=== PATIENT | female | born 1940 | race Caucasian/White ===

== ENCOUNTER 2018-03-20 10:32 | Emergency (ER) | payer MEDICARE ==
[2018-03-20 11:51] VITALS: BP 128/63
--- NOTE | 2018-03-20 12:30 | UC ---
Complaint Female HPI - HPI Summary HPI Summary: Patient got from [place] 3 days ago reported decreased by mouth intake so she wouldn't be getting out bathroom to urinate so much. 2 days ago developed urinary pain urgency burning frequency no fevers chills nausea vomiting or night sweats. Today pain and burning urgency and frequency or worsen - History Of Current Complaint Chief Complaint: UCGU Stated Complaint: URINARY Time Seen by Provider: 03/20/18 12:24 Hx Obtained From: Patient ?: No Onset/Duration: Sudden Onset, Lasting Days - 2, Worse Since - today Timing: Constant Severity Initially: Mild Severity Currently: Moderate Character: Burning Aggravating Factor(s): Urination - Allergies/Home Medications Allergies/Adverse Reactions: Allergies Allergy/AdvReac Type Severity Reaction Status Date / Time codeine Allergy hyperactivi Verified 03/20/18 11:55 ty metoclopramide [From Reglan] Allergy facial Verified 03/20/18 11:55 drooping Sulfa (Sulfonamide Allergy Rash Verified 03/20/18 11:54 Antibiotics) seasonal Allergy Congestion Uncoded 03/20/18 11:54 Home Medications: Home Medications Amlodipine Besylate [Norvasc 5 mg tab] 5 mg PO DAILY 03/20/18 [History Confirmed 03/20/18] Ascorbic Acid TAB* [Vitamin C TAB*] 1,000 mg PO DAILY 03/20/18 [History Confirmed 03/20/18] Aspirin [Aspirin Childrens 81 MG] 81 mg PO DAILY 03/20/18 [History Confirmed 04/02] Calcium Carbonate/Vitamin D3 [Calcium 600 + Vit D Tablet] 1 each PO DAILY [History Confirmed 03/20/18] Candesartan Cilexetil [Atacand] 16 mg PO QPM 03/20/18 [History Confirmed ] Clopidogrel TAB* [Plavix TAB*] 75 mg PO DAILY 03/20/18 [History Confirmed ] Cyanocobalamin TAB* [Vitamin B12 TAB*] 10,000 mcg PO DAILY 03/20/18 [History Confirmed 03/20/18] Dorzolamide/Timolol OPTH (NF) [Cosopt (NF)] 1 drop BOTH EYES BID 03/20/18 [ History Confirmed 03/20/18] Escitalopram Oxalate [Lexapro 20 mg] 20 mg PO DAILY 03/20/18 [History Confirmed 03/20/18] Magnesium Oxide [Magnesium] 1,000 mg PO DAILY 03/20/18 [History Confirmed ] Pantoprazole Sodium [Protonix] 20 mg PO DAILY 03/20/18 [History Confirmed ] Pravastatin Sodium [Pravachol] 40 mg PO BEDTIME 03/20/18 [History Confirmed 04/02] SUMAtriptan TAB* [Imitrex TAB*] 25 mg PO SEE INSTRUCTIONS 03/20/18 [History Confirmed 03/20/18] hydrOXYzine HCL TAB* [Atarax 25 MG TAB*] 25 mg PO SEE INSTRUCTIONS PRN 03/20/18 [History Confirmed 03/20/18] hydroCHLOROthiazide [Microzide-] 12.5 mg PO DAILY 03/20/18 [History Confirmed ] traZODone TAB* [Desyrel TAB*] 50 mg PO BEDTIME 03/20/18 [History Confirmed 03/20] PMH/Surg Hx/FS Hx/Imm Hx Previously Healthy: No Endocrine History: Dyslipidemia Cardiovascular History: Hypertension GI/ History: Gastroesophageal Reflux Neurological History: Migraine Psychological History: Depression - Surgical History Surgical History: Yes Surgery Procedure, Year, and Place: b/l knees,hysterectomy,lumbar, head aneurysms, right ankle; knee, lumbar, lapband, left hand - Family History Known Family History: Positive: Unknown - Social History Occupation: Retired Lives: With Family Alcohol Use: Occasionally Substance Use Type: None Smoking Status (MU): Former Smoker Review of Systems Constitutional: Negative Skin: Negative Eyes: Negative ENT: Negative Respiratory: Negative Cardiovascular: Negative Gastrointestinal: Negative Genitourinary: Negative, Dysuria, Frequency, Urgency Motor: Negative Neurovascular: Negative Musculoskeletal: Negative Neurological: Negative Psychological: Negative Is Patient Immunocompromised?: No All Other Systems Reviewed And Are Negative: Yes Physical Exam Triage Information Reviewed: Yes Appearance: Well-Appearing, No Pain Distress, Well-Nourished Vital Signs: Initial Vital Signs Temp 98.3 F 03/20/18 11:36 Pulse 62 03/20/18 11:36 Resp 18 03/20/18 11:36 BP 128/63 03/20/18 11:36 Pulse Ox 97 03/20/18 11:36 Vital Signs Reviewed: Yes Eye Exam: Normal Eyes: Positive: Conjunctiva Clear ENT Exam: Normal ENT: Positive: Normal ENT inspection, Hearing grossly normal. Negative: Nasal congestion, Trismus, Muffled voice, Hoarse voice Dental Exam: Normal Neck exam: Normal Neck: Positive: Supple, Nontender, No Lymphadenopathy Respiratory Exam: Normal Respiratory: Positive: Chest non-tender, Lungs clear, Normal breath sounds, No respiratory distress, No accessory muscle use Cardiovascular Exam: Normal Cardiovascular: Positive: RRR, Pulses Normal, Brisk Capillary Refill Abdominal Exam: Other Abdomen Description: Positive: No Organomegaly, Soft, Other: - suprapubic discomfort. Negative: CVA Tenderness (R), CVA Tenderness (L) Musculoskeletal Exam: Normal Musculoskeletal: Positive: Strength Intact, ROM Intact, No Edema Neurological Exam: Normal Neurological: Positive: Alert, Muscle Tone Normal Psychological Exam: Normal Skin Exam: Normal Diagnostics - Laboratory Diagnostic Studies Completed/Ordered: UAE +3 leukoesterase +2 blood Complaint Female Dx - Course Course Of Treatment: Culture urine, encourage patient to increase fluids start Macrobid and Pyridium follow with PCP - Differential Dx/Diagnosis Provider Diagnoses: UTI Discharge - Sign-Out/Discharge Documenting (check all that apply): Discharge/Admit/Transfer - Discharge Plan Condition: Stable Disposition: HOME Prescriptions: Nitrofurantoin Monohyd/M-Cryst [Macrobid 100 mg Capsule] 100 mg PO BID #20 cap Phenazopyridine TAB* [Pyridium 100 mg TAB*] 100 mg PO TID PRN #9 tab PRN Reason: urinary pain and burning Patient Education Materials: Phenazopyridine (By mouth), Urinary Tract Infection in Women (ED) Referrals: KAMRAN Yip [Primary Care Provider] - If Needed - Billing Disposition and Condition Condition: STABLE Disposition: HOME
== END 2018-03-20 12:46 | disposition home or self-care (01) ==
LOC: UCCORT 10:32
DX: N39.0 Urinary tract infection, site not specified (principal); B96.20 Unspecified Escherichia coli [E. coli] as the cause of diseases classified elsewhere; Z88.5 Allergy status to narcotic agent; Z88.2 Allergy status to sulfonamides; Z88.8 Allergy status to other drugs, medicaments and biological substances; Z79.01 Long term (current) use of anticoagulants; I10 Essential (primary) hypertension; F32.9 Major depressive disorder, single episode, unspecified; E78.5 Hyperlipidemia, unspecified; K21.9 Gastro-esophageal reflux disease without esophagitis; G43.909 Migraine, unspecified, not intractable, without status migrainosus; Z87.891 Personal history of nicotine dependence
CPT/HCPCS: 81003; 87077; 87086; 87186; 99212; G0463

== ENCOUNTER 2018-10-08 10:26 | Emergency (ER) | payer MEDICARE ==
[2018-10-08 12:21] VITALS: BP 138/66
--- NOTE | 2018-10-08 12:30 | UC ---
Complaint Female HPI - HPI Summary HPI Summary: 2 day hx of dysuria w/ no other assoc. symptoms. - History Of Current Complaint Chief Complaint: UCGU Stated Complaint: URINARY COMPLAINT Time Seen by Provider: 10/08/18 12:29 Hx Obtained From: Patient ?: No Onset/Duration: Sudden Onset - 2 days ago Timing: Constant Pain Intensity: 0 Aggravating Factor(s): Nothing Alleviating Factor(s): Nothing Associated Signs And Symptoms: Positive: Negative - Allergies/Home Medications Allergies/Adverse Reactions: Allergies Allergy/AdvReac Type Severity Reaction Status Date / Time codeine Allergy hyperactivi Verified 10/08/18 12:16 ty metoclopramide [From Reglan] Allergy facial Verified 10/08/18 12:16 drooping Sulfa (Sulfonamide Allergy Rash Verified 10/08/18 12:16 Antibiotics) seasonal Allergy Congestion Uncoded 10/08/18 12:16 PMH/Surg Hx/FS Hx/Imm Hx - Additional Past Medical History Additional PMH: several chronic diseases - Surgical History Surgical History: Yes Surgery Procedure, Year, and Place: b/l knees,hysterectomy,lumbar, head aneurysms, right ankle; knee, lumbar, lapband, left hand - Family History Known Family History: Positive: Unknown - Social History Alcohol Use: Occasionally Substance Use Type: None Smoking Status (MU): Former Smoker Review of Systems All Other Systems Reviewed And Are Negative: Yes Constitutional: Positive: Negative Skin: Positive: Negative Respiratory: Positive: Negative Cardiovascular: Positive: Negative Genitourinary: Positive: Dysuria, Frequency, Urgency. Negative: Hematuria, Abnormal Bleeding Neurological: Positive: Negative Physical Exam Triage Information Reviewed: Yes Appearance: Well-Appearing, No Pain Distress Vital Signs: Initial Vital Signs Temp 96.9 F 10/08/18 12:18 Pulse 50 10/08/18 12:18 Resp 18 10/08/18 12:18 BP 138/66 10/08/18 12:18 Pulse Ox 100 10/08/18 12:18 Vital Signs Reviewed: Yes Respiratory Exam: Normal Cardiovascular Exam: Normal Abdomen Description: Positive: Nontender, Soft Neurological: Positive: Alert Skin Exam: Normal - but several tattoos Complaint Female Dx - Course Course Of Treatment: 2 day hx of dysuria, increased urgency. UA + for nitrites , will tx. Afebrile and good vital.s [place] follow up w/ her pcp there. - Differential Dx/Diagnosis Differential Diagnosis/HQI/PQRI: Sexually Transmitted Disease, Urinary Tract Infection Provider Diagnoses: uti Discharge - Sign-Out/Discharge Documenting (check all that apply): Patient Departure All imaging exams completed and their final reports reviewed: No Studies - Discharge Plan Condition: Good Disposition: HOME Prescriptions: Nitrofurantoin Monohyd/M-Cryst [Macrobid 100 mg Capsule] 100 mg PO BID 7 Days # 14 cap Patient Education Materials: Urinary Tract Infection in Women (ED) Referrals: No Primary Care Phys,NOPCP [Primary Care Provider] - Additional Instructions: I will treat you today with antibiotics for your UTI. Please follow up with your PCP if not improving. - Billing Disposition and Condition Condition: GOOD Disposition: Home - Attestation Statements Provider Attestation: Per institutional requirements, I have reviewed the chart, however, I was not consulted specifically or made aware of this patient by the midlevel provider. I did not personally evaluate, interact with , or disposition this patient.
== END 2018-10-08 13:06 | disposition home or self-care (01) ==
LOC: UCCORT 10:26
DX: N39.0 Urinary tract infection, site not specified (principal); Z88.5 Allergy status to narcotic agent; Z88.2 Allergy status to sulfonamides; Z91.09 Other allergy status, other than to drugs and biological substances; Z88.8 Allergy status to other drugs, medicaments and biological substances; Z90.710 Acquired absence of both cervix and uterus; Z87.891 Personal history of nicotine dependence
CPT/HCPCS: 81003; 87077; 87086; 87186; 99212; G0463

== ENCOUNTER 2019-04-27 12:05 | Emergency (ER) | payer MEDICARE ==
[2019-04-27 12:31] VITALS: BP 140/61
[2019-04-27] MEDS ORDERED: Ibuprofen TAB* 600 MG PO ONE (13:04)
--- NOTE | 2019-04-27 13:09 | UC ---
Cardiac HPI - HPI Summary HPI Summary: 78-year-old woman comes in with a chief complaint of left lower posterior chest pain. Patient reports 3-4 weeks ago go she fell and injured the same area. She reports that she had x-rays done that showed a broken rib. The pain is been decreasing and improving until 2 days ago when the pain returned. Pain does radiate around the left side into the abdomen. Pain is worse with twisting turning bending and breathing. She does not feel short of breath. No fevers or chills. No rash. Patient drove up from [place] and the pain started during the trip. No pedal edema no calf pain. No history of DVT or pulmonary embolus. No change in urine has not seen any blood in her urine. Denies any anterior abdominal or chest pain. - History of Current Complaint Chief Complaint: UCBackPain Stated Complaint: RIB PAIN-PREVIOUS RIB INJURY Time Seen by Provider: 04/27/19 12:19 Pain Intensity: 9 - Allergy/Home Medications Allergies/Adverse Reactions: Allergies Allergy/AdvReac Type Severity Reaction Status Date / Time codeine Allergy hyperactivi Verified 04/27/19 12:31 ty metoclopramide [From Reglan] Allergy facial Verified 04/27/19 12:31 drooping Sulfa (Sulfonamide Allergy Rash Verified 04/27/19 12:31 Antibiotics) seasonal Allergy Congestion Uncoded 04/27/19 12:31 Home Medications: Home Medications Omeprazole 20 mg PO DAILY 04/27/19 [History Confirmed 04/27/19] PMH/Surg Hx/FS Hx/Imm Hx Previously Healthy: Yes - LEFT LOWER RIB FXR Endocrine History: Dyslipidemia Neurological History: Migraine - Surgical History Surgical History: Yes Surgery Procedure, Year, and Place: b/l knees,hysterectomy,lumbar, head aneurysms, right ankle; knee, lumbar, lapband and reversal, left hand - Family History Known Family History: Positive: Unknown - Social History Alcohol Use: Occasionally Substance Use Type: None Smoking Status (MU): Former Smoker Review of Systems All Other Systems Reviewed And Are Negative: Yes Constitutional: Positive: Negative Skin: Positive: Negative Eyes: Positive: Negative ENT: Positive: Negative Respiratory: Negative: Shortness Of Breath Cardiovascular: Positive: Chest Pain - see hpi Gastrointestinal: Positive: Other - see hpi Genitourinary: Positive: Negative Motor: Positive: Negative Neurovascular: Positive: Negative Musculoskeletal: Positive: Negative Neurological: Positive: Negative Psychological: Positive: Negative Is Patient Immunocompromised?: No Physical Exam Triage Information Reviewed: Yes Appearance: Well-Appearing, Well-Nourished, Pain Distress - mild with movement Vital Signs: Initial Vital Signs Temp 98.8 F 04/27/19 12:23 Pulse 58 04/27/19 12:23 Resp 24 04/27/19 12:23 BP 140/61 04/27/19 12:23 Pulse Ox 100 04/27/19 12:23 Vital Signs Reviewed: Yes Eye Exam: Normal Eyes: Positive: Conjunctiva Clear Neck: Positive: Supple Respiratory: Positive: Lungs clear, Normal breath sounds, No respiratory distress, Other: - tender to palpation left posterior lower chest. Cardiovascular: Positive: RRR Abdomen Description: Positive: Nontender - anterior, Soft, CVA Tenderness (L) Bowel Sounds: Positive: Present Musculoskeletal: Positive: Strength Intact, ROM Intact, No Edema - No calf tenderness Neurological: Positive: Alert, Muscle Tone Normal Psychological Exam: Normal Psychological: Positive: Normal Response To Family, Age Appropriate Behavior Skin Exam: Normal Skin: Positive: Other - no rash/eccymosis at site of the tenderness - Assessment/Plan Course Of Treatment: Patient Name: JAVIER ROSEN Medical Record#: [id number] Ordering Physician: Myles Benites MD Acct.#: [id number] : 1940 Age: 78 Sex: F Location: [facility] Exam Date: 04/27/19 1304 ADM Status: REG ER Order Information: RIBS LT UNI W/PA CH MIN 3 VWS Accession Number: [id number] CPT: 66907 INDICATION: Left posterior chest and rib pain. COMPARISON: Comparison is made with a prior chest x-ray study from April 28, 2018. TECHNIQUE: 4 views of the left ribs and dual-energy PA views of the chest were obtained. FINDINGS: There are nondisplaced fractures of the left fourth through sixth anterolateral ribs. The heart is within normal limits in size. There is mild prominence of the interstitial markings which appears unchanged. No pleural effusion or pneumothorax is seen. IMPRESSION: NONDISPLACED FRACTURES OF THE LEFT FOURTH THROUGH SIXTH RIBS. <Electronically signed by Thierry Patterson MD in OV> 04/27/19 0958 I discussed the x-ray report with the patient and her . Patient reports that the area pain today is in the same area and the same character pain as when she first initially broke her left ribs. She had ibuprofen in clinic and that helped decrease the pain. Patient denies any shortness of breath. She has no history of DVT or pulmonary embolus. Her calves are nontender to palpation are not swollen. Urine did show a trace of white blood cells and a trace of blood. Patient has no urinary symptoms. I discussed with the patient the signs and symptoms of pulmonary embolus and also kidney stones or infections. I let her know we have not ruled out those possibilities and that if her symptoms did not improve or they worsened she needs to go to the emergency department for further evaluation. At this time the patient stated that the pain was the same as with rib pain and she was not worried about a pulmonary embolus. - Clinical Impression Provider Diagnosis: Multiple fractures of ribs of left side, Left-sided chest pain, Acute left flank pain Discharge - Sign-Out/Discharge Documenting (check all that apply): Patient Departure All imaging exams completed and their final reports reviewed: Yes - Discharge Plan Condition: Stable Disposition: HOME Prescriptions: Ibuprofen TAB* [Motrin TAB* 600 MG] 600 mg PO Q6H PRN #30 tab PRN Reason: Pain Patient Education Materials: Chest Pain (ED), Rib Fracture (ED), Flank Pain (ED ) Referrals: KAMRAN Yip [Primary Care Provider] - Additional Instructions: FOLLOW UP WITH YOUR DOCTOR IF NOT COMPLETELY IMPROVED. IN CLINIC TODAY WE DID NOT RULE OUT THE POSSIBILITY OF A BLOOD CLOT IN YOUR LUNG. IF YOU DO NOT IMPROVE OR WORSEN, GO TO THE EMERGENCY DEPARTMENT FOR FURTHER EVALUATION. USE THE INCENTIVE SPIROMETER EVERY 4 HOURS OR MORE FREQUENTLY TO HELP AVOID A RESPIRATORY INFECTION. GO TO THE EMERGENCY DEPARTMENT IF YOUR CONDITION WORSENS; PAIN, FEVER, SHORTNESS OF BREATH, BLOOD IN YOUR URINE, YOU FEEL ILL OR ANY QUESTIONS OR CONCERNS. - Billing Disposition and Condition Condition: STABLE Disposition: Home
== END 2019-04-27 14:22 | disposition home or self-care (01) ==
LOC: UCCORT 12:05
DX: S22.42XA Multiple fractures of ribs, left side, initial encounter for closed fracture (principal); W19.XXXA Unspecified fall, initial encounter; Y92.9 Unspecified place or not applicable; R07.9 Chest pain, unspecified; R10.9 Unspecified abdominal pain; Z88.5 Allergy status to narcotic agent; Z87.891 Personal history of nicotine dependence
CPT/HCPCS: 81003; 87086; 99211; A9270-GY; G0463